=== PATIENT | female | born 1985 | race Caucasian/White ===

== ENCOUNTER 2016-06-11 17:50 | Emergency (ER) | payer OTHER ==
[~2016-06-11] VITALS: Ht 172.7 cm; Wt 82.1 kg
[~2016-06-11 17:50] MED LIST: ALPR0.5T PO; DOXY100T PO; FAMO40TA4 PO; FLUC200T PO; PRED-220 PO
[2016-06-11 18:00] VITALS: BP 163/74
[2016-06-11] MEDS ORDERED: IPRATRPIUM/ALBUTEROL 0.5/2.5MG 3 ML NEBU. NEB ONE (18:15)
[2016-06-11] MEDS ORDERED: PREDNISONE 20 MG TABLET PO ONE (18:15)
[2016-06-11] MEDS ORDERED: ACETAMINOPHEN 500 MG TABLET PO ONE (18:15)
--- NOTE | 2016-06-11 18:23 | PHYS DOC ---
Past Medical History Past Medical History: Anxiety, Asthma, Other Additional Past Medical Histor: SINUS HEADACHES Past Surgical History: Other Additional Past Surgical Histo: SINUS SURGERY Alcohol Use: None Drug Use: None Adult General Chief Complaint Chief Complaint: NAUSEA/VOMITING/DIARRHA HPI HPI Patient is a 31 year old female who presents with multiple complaints including a productive cough, body aches, fevers, vomiting, that began yesterday. Patient states several family members have similar symptoms. Patient has history of asthma and COPD Review of Systems Review of Systems Constitutional: Subjective fevers and body aches Eyes: Denies change in visual acuity, redness, or eye pain [] HENT: Nasal congestion Respiratory: Productive cough Cardiovascular: No additional information not addressed in HPI [] GI: Denies abdominal pain, nausea, vomiting, bloody stools or diarrhea [] : Denies dysuria or hematuria [] Musculoskeletal: Denies back pain or joint pain [] Integument: Denies rash or skin lesions [] Neurologic: Denies headache, focal weakness or sensory changes [] Endocrine: Denies polyuria or polydipsia [] Current Medications Current Medications Current Medications Medications (Trade) Dose Ordered Sig/Baron Start Time Stop Time Status Last Admin Dose Admin Acetaminophen (Tylenol) 1,000 mg 1X ONCE 06/11/16 18:15 06/11/16 18:19 DC 06/11/16 18:46 1,000 MG Albuterol/ Ipratropium (Duoneb) 3 ml 1X ONCE 06/11/16 18:15 06/11/16 18:19 DC Ondansetron HCl (Zofran Odt) 4 mg 1X ONCE 06/11/16 18:30 06/11/16 18:31 DC 06/11/16 18:46 4 MG Prednisone (Prednisone) 60 mg 1X ONCE 06/11/16 18:15 06/11/16 18:19 DC 06/11/16 18:46 60 MG Allergies Allergies Allergies Coded Allergies Type Severity Reaction Last Updated Verified No Known Drug Allergies 03/05/15 No Physical Exam Physical Exam Constitutional: Well developed, well nourished, no acute distress, non-toxic appearance. [] HENT: Normocephalic, atraumatic, bilateral external ears normal, oropharynx moist, no oral exudates, nose normal. [] Eyes: PERRLA, EOMI, conjunctiva normal, no discharge. [] Neck: Normal range of motion, no tenderness, supple, no stridor. [] Cardiovascular:Heart rate regular rhythm, no murmur [] Lungs & Thorax: Bilateral breath sounds clear to auscultation [] Abdomen: Bowel sounds normal, soft, no tenderness, no masses, no pulsatile masses. [] Skin: Warm, dry, no erythema, no rash. [] Back: No tenderness, no CVA tenderness. [] Extremities: No tenderness, no cyanosis, no clubbing, ROM intact, no edema. [] Neurologic: Alert and oriented X 3, normal motor function, normal sensory function, no focal deficits noted. [] Psychologic: Affect normal, judgement normal, mood normal. [] Current Patient Data Vital Signs Vital Signs Date Time Temp Pulse Resp B/P Pulse Ox O2 Delivery O2 Flow Rate FiO2 06/11/16 18:35 100 Room Air 06/11/16 18:00 100.4 115 22 163/24 100.4 Lab Values Laboratory Tests Test 06/11/16 18:15 Urine Collection Type Unknown Urine Color Yellow Urine Clarity Clear Urine pH 8.0 Urine Specific [place] 1.020 Urine Protein Negativemg/dL (NEG-TRACE) Urine Glucose (UA) Negativemg/dL (NEG) Urine Ketones (Stick) Negativemg/dL (NEG) Urine Blood Negative (NEG) Urine Nitrite Negative (NEG) Urine Bilirubin Negative (NEG) Urine Urobilinogen Dipstick 0.2mg/dL (0.2 mg/dL) Urine Leukocyte Esterase Negative (NEG) Urine RBC Occ/HPF (0-2) Urine WBC 1-4/HPF (0-4) Urine Squamous Epithelial Cells Mod/LPF Urine Bacteria Few/HPF (0-FEW) Urine Mucus Slight/LPF Urine Test Negative (NEG) Influenza Type A Antigen Negative (NEGATIVE) Influenza Type B Antigen Negative (NEGATIVE) EKG EKG [] Radiology/Procedures Radiology/Procedures [] Course & Med Decision Making Course & Med Decision Making Pertinent Labs and Imaging studies reviewed. (See chart for details) Patient is in the ED with multiple complaints including subjective fevers, body aches, productive cough, vomiting. Several family members have similar symptoms. Temp in the ED 100.4. Patient was given Tylenol 1 g. She appears well. Chest x-ray interpreted by Dr. Street is negative for any acute findings. Negative influenza A or B, negative rapid strep, UA negative for infection. Patient's symptoms are probably viral. She was instructed to take Tylenol every 4 hours Motrin every 6 hours, discharged with promethazine. Instructed to push fluids and maintaining good hand hygiene. Follow-up with her own doctor in the next 1 week. Instructed to return to the ED symptoms worsen. Dragon Disclaimer Dragon Disclaimer This electronic medical record was generated, in whole or in part, using a voice recognition dictation system. Departure Departure Impression: Primary Impression: Fever Additional Impression: Cough Disposition: HOME, SELF-CARE Condition: STABLE Referrals: UNKNOWN PCP NAME (PCP) Patient Instructions: Cough, Adult, Fever, Adult, [id number] Additional Instructions: You were seen for symptoms consistent with a viral illness. We recommend you push fluids. Maintain very good hand hygiene. Take Tylenol every 4 hours and Motrin every 6 hours. Follow-up with your own doctor in one week. Come back to the emergency room if symptoms worsen. Scripts Benzonatate (Tessalon Perle)100 Mg Capsule1 Cap PO TID #30 CAP Prov:VANNA SQUIRES APRN 06/11/16 Promethazine Hcl 25 Mg Tablet1 Tab PO PRN Q6HRS #20 TAB Prov:VANNA SQUIRES APRN 06/11/16 Problem Qualifiers Primary Impression: Fever Fever type: unspecified Qualified Code: R50.9 - Fever, unspecified VANNA SQUIRES APRN Jun 11, 2016 18:23
[2016-06-11 18:30] LABS: BILIRUBIN,URINE NEGATIVE (NEG); GLUCOSE,URINE NEGATIVE (NEG); NITRITE,URINE NEGATIVE (NEG); PROTEIN,URINE NEGATIVE (NEG-TRACE); UROBILINOGEN,URINE 0.2 mg/dL (0.2 mg/dL)
[2016-06-11] MEDS ORDERED: ONDANSETRON ODT 4 MG TAB.RAPDIS PO ONE (18:30)
[2016-06-11 18:34] LABS: NEG OBC UR NEG; POS OBC UR POS
[2016-06-11 18:36] LABS: BACTERIA,URINE FEW /HPF (0-FEW); RBC,URINE OCC /HPF (0-2); SQUAMOUS EPITHELIAL CELL,UR MOD /LPF
[2016-06-11 18:45] LABS: OBC FLU VALID
[2016-06-11] MEDS ORDERED: PROM25TA10 PO (18:53)
[2016-06-11] MEDS ORDERED: BENZ100C PO (18:53)
--- NOTE | 2016-06-12 07:47 | RAD ---
Indication: Abdominal pain and headache. Time of exam 1822 hours. FINDINGS: The heart size is normal. The lungs are clear. No pleural effusion or pneumothorax is identified. The pulmonary vascularity is normal. IMPRESSION: No acute abnormality detected.
[2016-06-12 08:01] LABS: NEGATIVE OBC STREP NEG; POSITIVE OBC STREP POS
== END 2016-06-11 19:25 | disposition home or self-care (01) ==
LOC: ER 17:50
DX: R50.9 Fever, unspecified (principal); R05 Cough; R11.10 Vomiting, unspecified; R09.81 Nasal congestion; M79.1 Myalgia; J45.909 Unspecified asthma, uncomplicated; J44.9 Chronic obstructive pulmonary disease, unspecified; F41.9 Anxiety disorder, unspecified; Z98.890 Other specified postprocedural states
CPT/HCPCS: 71020; 81001; 81025; 87070; 87804; 87880; 94250; 94640; 99285; J7512; Q0162